=== PATIENT | female | born 1940 | race Two or more races ===

== ENCOUNTER 2016-11-26 13:45 | Outpatient (CLI) | payer MEDICARE, MEDICAID | END 2016-11-26 23:59 | disposition home health service (06) | LOC: WOU 13:45 | PROVIDERS: ATTEND Podiatrist Foot & Ankle Surgery | DX: I87.311 Chronic venous hypertension (idiopathic) with ulcer of right lower extremity (principal); L97.312 Non-pressure chronic ulcer of right ankle with fat layer exposed; L03.115 Cellulitis of right lower limb; I11.9 Hypertensive heart disease without heart failure; Z83.3 Family history of diabetes mellitus | CPT/HCPCS: 87070-TC; 87186-TC; 93925-TC; 93971-TC; A6402; G0463 ==

== ENCOUNTER 2016-12-03 13:40 | Outpatient (CLI) | payer MEDICARE, MEDICAID | END 2016-12-03 23:59 | disposition home or self-care (01) | LOC: WOU 13:40 | PROVIDERS: ATTEND Podiatrist Foot & Ankle Surgery | DX: I87.311 Chronic venous hypertension (idiopathic) with ulcer of right lower extremity (principal); L97.312 Non-pressure chronic ulcer of right ankle with fat layer exposed; B35.1 Tinea unguium; Z83.3 Family history of diabetes mellitus; I11.9 Hypertensive heart disease without heart failure; Z79.899 Other long term (current) drug therapy | CPT/HCPCS: 29582; A6207; A6253; A6402 ==

== ENCOUNTER 2016-12-17 14:30 | Outpatient (CLI) | payer MEDICARE, MEDICAID | END 2016-12-17 23:59 | disposition home health service (06) | LOC: WOU 14:30 | PROVIDERS: ATTEND Podiatrist Foot & Ankle Surgery | DX: I87.311 Chronic venous hypertension (idiopathic) with ulcer of right lower extremity (principal); L97.312 Non-pressure chronic ulcer of right ankle with fat layer exposed; L03.115 Cellulitis of right lower limb; R60.0 Localized edema; I11.9 Hypertensive heart disease without heart failure; Z83.3 Family history of diabetes mellitus | CPT/HCPCS: 11042; 11045; A6207; A6402 ==

== ENCOUNTER 2016-12-25 13:58 | Outpatient (CLI) | payer MEDICARE, MEDICAID | END 2016-12-25 23:59 | disposition home health service (06) | LOC: WOU 13:58 | PROVIDERS: ATTEND Podiatrist Foot & Ankle Surgery | DX: I83.013 Varicose veins of right lower extremity with ulcer of ankle (principal); L97.312 Non-pressure chronic ulcer of right ankle with fat layer exposed; I83.891 Varicose veins of right lower extremity with other complications; L03.115 Cellulitis of right lower limb; I10 Essential (primary) hypertension; Z79.899 Other long term (current) drug therapy | CPT/HCPCS: 11042; 11045; A6207; A6402 ×2 ==

== ENCOUNTER 2016-12-31 14:30 | Outpatient (CLI) | payer MEDICARE, MEDICAID | END 2016-12-31 23:59 | disposition home health service (06) | LOC: WOU 14:30 | PROVIDERS: ATTEND Podiatrist Foot & Ankle Surgery | DX: I83.013 Varicose veins of right lower extremity with ulcer of ankle (principal); L97.312 Non-pressure chronic ulcer of right ankle with fat layer exposed; B35.1 Tinea unguium; I11.9 Hypertensive heart disease without heart failure; L03.115 Cellulitis of right lower limb | CPT/HCPCS: 11042; 11045; A6207; A6402 ==

== ENCOUNTER 2017-01-08 14:42 | Outpatient (CLI) | payer MEDICARE, MEDICAID | END 2017-01-08 23:59 | disposition home health service (06) | LOC: WOU 14:42 | PROVIDERS: ATTEND Podiatrist Foot & Ankle Surgery | DX: I87.311 Chronic venous hypertension (idiopathic) with ulcer of right lower extremity (principal); L97.312 Non-pressure chronic ulcer of right ankle with fat layer exposed; L03.115 Cellulitis of right lower limb; I82.811 Embolism and thrombosis of superficial veins of right lower extremity; I11.9 Hypertensive heart disease without heart failure | CPT/HCPCS: 11042; 11045; A6207; A6402 ==

== ENCOUNTER 2017-01-22 13:49 | Outpatient (CLI) | payer MEDICARE, MEDICAID | END 2017-01-22 23:59 | disposition home health service (06) | LOC: WOU 13:49 | PROVIDERS: ATTEND Podiatrist Foot & Ankle Surgery | DX: I87.311 Chronic venous hypertension (idiopathic) with ulcer of right lower extremity (principal); L97.312 Non-pressure chronic ulcer of right ankle with fat layer exposed; R00.1 Bradycardia, unspecified; Z95.0 Presence of cardiac pacemaker; Z83.3 Family history of diabetes mellitus; Z79.899 Other long term (current) drug therapy | CPT/HCPCS: 29582; A6207; A6253; A6402 ==

== ENCOUNTER 2017-01-24 09:58 | Outpatient (CLI) | payer MEDICARE, MEDICAID ==
[2017-01-24 10:41] LABS: BASOPHILS % (AUTO) 0.8 % (0.0-2.0); DIFF TOTAL % 100 %; EOSINOPHILS # (AUTO) 0.2 /CMM (0.0-0.7); EOSINOPHILS % (AUTO) 4.5 % (0.0-6.0); HEMATOCRIT 35 % (33-45); HEMOGLOBIN 11.7 g/dL (11.5-14.8); LYMPHOCYTES # (AUTO) 1.5 /CMM (0.8-4.8); LYMPHOCYTES % (AUTO) 27.1 % (20.0-44.0); MEAN CORPUSCULAR HEMOGLOBIN 31 PG (26.0-33.0); MEAN CORPUSCULAR HGB CONC 33 g/dl (31.0-36.0); MEAN CORPUSCULAR VOLUME 94 fL (82-100); MONOCYTES # (AUTO) 0.3 /CMM (0.1-1.30); MONOCYTES % (AUTO) 6.2 % (2.0-12.0); NEUTROPHILS # (AUTO) 3.4 /CMM (1.8-8.9); NEUTROPHILS % (AUTO) 61.4 % (43.0-81.0); PLATELET COUNT (AUTO) 180 /CMM (150-450); RED BLOOD CELL COUNT(AUTO) 3.78 MIL/uL (4.0-5.2); WHITE BLOOD COUNT (AUTO) 5.5 K/uL (4.3-11.0)
[2017-01-24 10:53] LABS: CALCIUM, SERUM 8.8 mg/dL (8.5-10.1); CREATININE 0.8 mg/dL (0.6-1.3)
[2017-01-24 11:00] LABS: INR 1.02 (0.87-1.13)
== END 2017-01-24 23:59 | disposition home or self-care (01) ==
LOC: LAB 09:58
PROVIDERS: ATTEND Podiatrist Foot & Ankle Surgery
DX: I87.2 Venous insufficiency (chronic) (peripheral) (principal)
CPT/HCPCS: 36415; 71020-TC; 80048-TC; 85025-TC; 85730-TC

== ENCOUNTER 2017-01-29 14:20 | Outpatient (CLI) | payer MEDICARE, MEDICAID | END 2017-01-29 23:59 | disposition home health service (06) | LOC: WOU 14:20 | PROVIDERS: ATTEND Podiatrist Foot & Ankle Surgery | DX: I87.311 Chronic venous hypertension (idiopathic) with ulcer of right lower extremity (principal); L97.312 Non-pressure chronic ulcer of right ankle with fat layer exposed; I95.9 Hypotension, unspecified; I49.5 Sick sinus syndrome; Z83.3 Family history of diabetes mellitus; L03.115 Cellulitis of right lower limb | CPT/HCPCS: 11042; 11045; A6207; A6253; A6402 ==

== ENCOUNTER 2017-02-05 14:02 | Outpatient (CLI) | payer MEDICARE, MEDICAID | END 2017-02-05 23:59 | disposition home health service (06) | LOC: WOU 14:02 | PROVIDERS: ATTEND Podiatrist Foot & Ankle Surgery | DX: I87.311 Chronic venous hypertension (idiopathic) with ulcer of right lower extremity (principal); L97.312 Non-pressure chronic ulcer of right ankle with fat layer exposed; Z83.3 Family history of diabetes mellitus; I11.9 Hypertensive heart disease without heart failure; I82.811 Embolism and thrombosis of superficial veins of right lower extremity; I49.5 Sick sinus syndrome | CPT/HCPCS: 11042; 11045; A6207; A6253; A6402 ==

== ENCOUNTER 2017-02-07 05:13 | Inpatient (IN) | payer MEDICARE, OTHER ==
[~2017-02-07] VITALS: Ht 154.9 cm; Wt 58.5 kg
[2017-02-07 05:30] VITALS: BP 159/67
--- NOTE | 2017-02-07 05:40 | NUR ---
RN NOTES RECEIVED PT. DAY SURGERY, AWAKE A/OX4. MONTENEGRIN SPEAKING, DAUGHTER AT BEDSIDE, DRESSING ON THE RIGHT ANKLE DRY AND INTACT
[2017-02-07 06:30] LABS: CALCIUM, SERUM 8.8 mg/dL (8.5-10.1); CREATININE 0.7 mg/dL (0.6-1.3); POTASSIUM 3.5 mmol/L (3.5-5.1)
[2017-02-07 06:34] LABS: BASOPHILS % (AUTO) 0.7 % (0.0-2.0); EOSINOPHILS # (AUTO) 0.2 /CMM (0.0-0.7); EOSINOPHILS % (AUTO) 3.8 % (0.0-6.0); HEMATOCRIT 35 % (33-45); HEMOGLOBIN 11.7 g/dL (11.5-14.8); LYMPHOCYTES # (AUTO) 1.6 /CMM (0.8-4.8); LYMPHOCYTES % (AUTO) 35.8 % (20.0-44.0); MEAN CORPUSCULAR HEMOGLOBIN 31 PG (26.0-33.0); MEAN CORPUSCULAR HGB CONC 34 g/dl (31.0-36.0); MEAN CORPUSCULAR VOLUME 93 fL (82-100); MONOCYTES # (AUTO) 0.3 /CMM (0.1-1.30); MONOCYTES % (AUTO) 7.5 % (2.0-12.0); NEUTROPHILS # (AUTO) 2.3 /CMM (1.8-8.9); NEUTROPHILS % (AUTO) 52.2 % (43.0-81.0); PLATELET COUNT (AUTO) 193 /CMM (150-450); RDW COEFFICIENT OF VARIATION 14.8 (11.5-15.0); RED BLOOD CELL COUNT(AUTO) 3.72 MIL/uL (4.0-5.2); WHITE BLOOD COUNT (AUTO) 4.4 K/uL (4.3-11.0)
[2017-02-07 06:37] LABS: INR 1.03 (0.87-1.13)
[2017-02-07] MEDS ORDERED: BUPIVACAINE MPF 0.5% W/EPI INJ 30 ML VIAL ONE (06:50)
[2017-02-07] MEDS ORDERED: LIDOCAINE HCL/PF 1% 30 ML SDV ONE (06:50)
[2017-02-07] MEDS ORDERED: MINERAL OIL 10 ML VIAL MC ONE (07:01)
--- NOTE | 2017-02-07 07:10 | NUR ---
RN NOTES PT. SENT TO OR FOR WOUND PREP AND SPLIT THICKNESS SKIN GRAFT RIGHT ANKLE
[2017-02-07] MEDS ORDERED: MIDAZOLAM HCL 2 MG/2ML VIAL ONE (07:19)
[2017-02-07] MEDS ORDERED: FENTANYL PF 100MCG/2ML AMPUL ONE (07:19)
--- NOTE | 2017-02-07 07:30 | NUR ---
AM RN NOTE Patient in OR upon arrival.
--- NOTE | 2017-02-07 09:05 | NUR ---
AM RN NOTE Patient came back from OR as accompanied by OR staff, A/O X3 verbally responsive, Turkmen speaking. Denies any pain or discomfort at this time. Daughter (Dawna) at bedside. Wound vac attached to right thigh @125mm/hg with no output at this time. Right leg covered with dressing and elevated with [address] pill[address]. Seen by Dr. Murray recruiting manager with new order to place patient on tele monitor. Diet ordered. Bed in low locked position. Will continue to monitor. V/S BP151/78 T97.0 P63 R18 PA0/10 O2 sat 96% at RA.
[2017-02-07] MEDS ORDERED: Z GUARD REMEDY 2 OZ OINT TP PRN (09:30)
--- NOTE | 2017-02-07 09:36 | NUR ---
WOUND CARE CONSULT: PATIENT SEEN AND SKIN ASSESSMENT DONE. PATIENT ALERT, ORIENTED, ABLE TO TURN AND REPOSITION HOWEVER NEEDS ASSIST DUE TO RIGHT LOWER LEG IN NON REMOVABLE SURGICAL DRESSINGS AND WRAP, CONTINENT, VANDANA 20. SEE TODAY'S SKIN ASSESSMENT IN [facility]CS ALONG WITH RECOMMENDATIONS DISCUSSED WITH NURSING STAFF INCLUDING MOISTURE PROTECTION AND PRESSURE PREVENTION MEASURES. MD IN AGREEMENT WITH PLAN OF CARE.
[2017-02-07 09:52] LABS: THYROID STIMULATING HORMONE 1.412 uIU/mL (0.358-3.74)
[2017-02-07 09:53] LABS: MAGNESIUM 2.1 mg/dL (1.8-2.4); PHOSPHORUS 3.4 mg/dL (2.5-4.9)
[2017-02-07] MEDS ORDERED: HYDROCODONE/APAP 5/325MG 1 EACH TABLET PO PRN ×2 (10:30)
[2017-02-07] MEDS ORDERED: MORPHINE SULFATE INJ 2 MG/ML DISP.SYRIN IV PRN (10:30)
[2017-02-07] MEDS: CHOLECALCIFEROL 1,000 UNIT TABLET (VIT D3) PO SCH ×2 (10:40→10:42)
[2017-02-07] MEDS: VALSARTAN 80 MG TABLET PO SCH (10:40)
[2017-02-07] MEDS: ASCORBIC ACID 500 MG TABLET PO SCH (10:40)
[2017-02-07] MEDS: AMLODIPINE BESYLATE 5 MG TABLET PO SCH ×2 (10:41→10:42)
--- NOTE | 2017-02-07 10:42 | NUR ---
RN NOTE Routine vit D3 and Norvasc given as ordered.
[2017-02-07] MEDS: CALCIUM CARBONATE 500 MG TAB.CHEW PO SCH (10:43)
[2017-02-07 16:00] VITALS: BP 153/75
[2017-02-07] MEDS ORDERED: IV SET PRIMARY PUMP SET 1 EA INFUS.SET MC ONE ×2 (16:25→20:47)
[2017-02-07] MEDS: ANCEF 1 GM/50 ML D5W IV SCH ×4 (16:28→23:11)
[2017-02-07] MEDS ORDERED: BIMA2.5D5 EACHEYE (18:20)
[2017-02-07] MEDS ORDERED: BRIN8DRO EACHEYE (18:21)
--- NOTE | 2017-02-07 19:10 | NUR ---
RN OPEN NOTES RECEIVED PATIENT AWAKE IN BED WITH FAMILY AT BEDSIDE. A/O X4. NO SIGNS OF DISTRESS OR DISCOMFORT. BREATHING EVEN AND UNLABORED. ON TELE MONITOR WITH SINUS FABIENNE HR 60 NOTED. IV ACCESS IN L HAND. PATENT AND INTACT NO SIGNS OF REDNESS OR INFILTRATION. WOUND VAC AT RIGHT UPPER THIGH WITH NO DRAINAGE NOTED. RIGHT LOWER LEG DRESSING C/D/I. DENIES ANY PAIN AT THIS TIME. BED IN LOW LOCKED POSITION WITH SIDE RAILS X2. CALL LIGHT WITHIN REACH. WILL CONTINUE TO MONITOR.
--- NOTE | 2017-02-07 19:25 | NUR ---
RN NOTE Patient lying in her bed, denies any pain at this time. Skin pictures taken. Endorsed to next shift for AURORA.
[2017-02-07 20:00] VITALS: BP 134/83
[2017-02-07] MEDS: SIMBRINZA EYE OP SCH (20:34)
[2017-02-07] MEDS: IV NS 0.9% 1,000 ML IV PRN (20:56)
[2017-02-07] MEDS ORDERED: BIMATOPROST 2.5 ML DROPS OP SCH (22:00)
[2017-02-07] MEDS: LATANOPROST EYE DROP 0.005% 2.5 ML BOTTLE EACHEYE SCH (23:04)
[2017-02-07] MEDS ORDERED: SECONDARY IV SET 1 EA INFUS.SET MC ONE (23:08)
[2017-02-08] VITALS (8 sets, daily range): BP systolic 123–195; BP diastolic 52–82
--- NOTE | 2017-02-08 07:15 | NUR ---
RN CLOSING NOTES PATIENT AWAKE IN BED. A/O X4. NO SIGNS OF DISTRESS OR DISCOMFORT. BREATHING EVEN AND UNLABORED. ON TELE MONITOR WITH SINUS FABIENNE HR 46 NOTED. IV ACCESS IN L HAND. PATENT AND INTACT NO SIGNS OF REDNESS OR INFILTRATION. WOUND VAC AT RIGHT UPPER THIGH WITH NO DRAINAGE NOTED. RIGHT LOWER LEG DRESSING C/D/I. DENIES ANY PAIN AT THIS TIME. NO SIGNIFICANT CHANGES THROUGH THE NIGHT. PATIENT KEPT CLEAN DRY AND COMFORTABLE. BED IN LOW LOCKED POSITION WITH SIDE RAILS X2. CALL LIGHT WITHIN REACH. ENDORSED TO AM SHIFT FOR AURORA.
--- NOTE | 2017-02-08 07:20 | NUR ---
RN NOTES RECEIVED PATIENT AWAKE IN BED, A/O X4. RESPIRATIONS EVEN AND UNLABORED, DENIES ANY PAIN OR DISCOMFORT AT THIS TIME.NO SIGNS OF DISTRESS OR DISCOMFORT. ON TELE MONITOR WITH SINUS FABIENNE HR 60 NOTED. IV ACCESS IN L HAND. PATENT AND INTACT NO SIGNS OF REDNESS OR INFILTRATION. WOUND VAC AT RIGHT UPPER THIGH WITH NO DRAINAGE NOTED. RIGHT LOWER LEG DRESSING C/D/I. BED IN LOW LOCKED POSITION WITH SIDE RAILS X2. CALL LIGHT WITHIN REACH. WILL CONTINUE TO MONITOR.
[2017-02-08 07:29] LABS: BASOPHILS % (AUTO) 0.9 % (0.0-2.0); EOSINOPHILS # (AUTO) 0.2 /CMM (0.0-0.7); EOSINOPHILS % (AUTO) 5.4 % (0.0-6.0); HEMATOCRIT 34 % (33-45); HEMOGLOBIN 11.2 g/dL (11.5-14.8); LYMPHOCYTES # (AUTO) 1.8 /CMM (0.8-4.8); LYMPHOCYTES % (AUTO) 39.7 % (20.0-44.0); MEAN CORPUSCULAR HEMOGLOBIN 31 PG (26.0-33.0); MEAN CORPUSCULAR HGB CONC 33 g/dl (31.0-36.0); MEAN CORPUSCULAR VOLUME 93 fL (82-100); MONOCYTES # (AUTO) 0.3 /CMM (0.1-1.30); MONOCYTES % (AUTO) 6.6 % (2.0-12.0); NEUTROPHILS # (AUTO) 2.1 /CMM (1.8-8.9); NEUTROPHILS % (AUTO) 47.4 % (43.0-81.0); PLATELET COUNT (AUTO) 180 /CMM (150-450); RDW COEFFICIENT OF VARIATION 14.4 (11.5-15.0); WHITE BLOOD COUNT (AUTO) 4.4 K/uL (4.3-11.0)
[2017-02-08 07:45] LABS: ALBUMIN 3.2 g/dL (3.4-5.0); BILIRUBIN,TOTAL 0.5 mg/dL (0.2-1.0); CALCIUM, SERUM 8.5 mg/dL (8.5-10.1); CREATININE 0.7 mg/dL (0.6-1.3); MAGNESIUM 2.1 mg/dL (1.8-2.4); PHOSPHORUS 3.3 mg/dL (2.5-4.9); POTASSIUM 3.9 mmol/L (3.5-5.1); TOTAL PROTEIN, SERUM 6.9 g/dL (6.4-8.2)
[2017-02-08] MEDS: ASPIRIN EC 81 MG TABLET.DR PO SCH (08:41)
[2017-02-08] MEDS: AMLODIPINE BESYLATE 5 MG TABLET PO SCH (08:41)
[2017-02-08] MEDS: VALSARTAN 80 MG TABLET PO SCH (08:42)
[2017-02-08] MEDS: ASCORBIC ACID 500 MG TABLET PO SCH (09:10)
[2017-02-08] MEDS: CALCIUM CARBONATE 500 MG TAB.CHEW PO SCH (09:10)
[2017-02-08] MEDS: CHOLECALCIFEROL 1,000 UNIT TABLET (VIT D3) PO SCH (09:10)
[2017-02-08] MEDS: SIMBRINZA EYE OP SCH ×3 (09:11→16:21)
--- NOTE | 2017-02-08 09:30 | NUR ---
RN NOTES PT WITH TRENDING HIGH BP, BOONE EPOXY SPECIALIST MADE AWARE, WILL REVIEW, WILL CONTINUE TO MONITOR
[2017-02-08] MEDS: IV NS 0.9% 1,000 ML IV PRN (14:58)
[2017-02-08] MEDS ORDERED: diphenhydrAMINE HCL 25 MG CAPSULE PO PRN (18:30)
--- NOTE | 2017-02-08 19:15 | NUR ---
RN OPEN NOTES RECEIVED PATIENT AWAKE IN BED. A/O X4. NO SIGNS OF DISTRESS OR DISCOMFORT. BREATHING EVEN AND UNLABORED. ON TELE MONITOR WITH SINUS FABIENNE NOTED. IV ACCESS IN L HAND WITH NS INFUSING. PATENT AND INTACT NO SIGNS OF REDNESS OR INFILTRATION. WOUND VAC AT RIGHT UPPER THIGH WITH NO DRAINAGE NOTED. RIGHT LOWER LEG DRESSING C/D/I. DENIES ANY PAIN AT THIS TIME. BED IN LOW LOCKED POSITION WITH SIDE RAILS X2. CALL LIGHT WITHIN REACH. WILL CONTINUE TO MONITOR.
[2017-02-08] MEDS ORDERED: FEE PK DOSING 1 MIN EA MC ONE (19:17)
--- NOTE | 2017-02-08 19:33 | NUR ---
RN NOTES RECEIVED PATIENT AWAKE IN BED, A/O X4. RESPIRATIONS EVEN AND UNLABORED, DENIES ANY PAIN OR DISCOMFORT AT THIS TIME.NO SIGNS OF DISTRESS OR DISCOMFORT. ON TELE MONITOR WITH SINUS FABIENNE nOTED. IV ACCESS IN L HAND. PATENT AND INTACT NO SIGNS OF REDNESS OR INFILTRATION. WOUND VAC AT RIGHT UPPER THIGH WITH NO DRAINAGE NOTED. RIGHT LOWER LEG DRESSING C/D/I. BED IN LOW LOCKED POSITION WITH SIDE RAILS X2. CALL LIGHT WITHIN REACH. ENDORSED TO NEXT SHIFT FOR CONTINUITY OF CARE
[2017-02-08] MEDS: VANCOMYCIN 1 GM in IV D5W 250 ML IV SCH (20:11)
[2017-02-08] MEDS ORDERED: SECONDARY IV SET 1 EA INFUS.SET MC ONE (20:15)
[2017-02-08] MEDS ORDERED: CEFAZOLIN 1 GM in IV NS 0.9% 50 ML IV SCH (21:00)
[2017-02-08] MEDS: LATANOPROST EYE DROP 0.005% 2.5 ML BOTTLE EACHEYE SCH (21:56)
[2017-02-09] VITALS (7 sets, daily range): BP systolic 134–178; BP diastolic 55–80
[2017-02-09] MEDS: IBUPROFEN 400 MG TABLET PO PRN (05:41)
--- NOTE | 2017-02-09 05:45 | NUR ---
RN NOTES PATIENT REPEAT BP 178/68. DR. BRONSON MADE AWARE. NO NEW ORDERS. PATIENT COMPLAIN OF SLIGHT HEADACHE. ADMINISTERED MOTRIN 800MG PRN. WILL CONTINUE TO MONITOR.
--- NOTE | 2017-02-09 07:18 | NUR ---
RN CLOSING NOTES PATIENT AWAKE IN BED. A/O X4. NO SIGNS OF DISTRESS OR DISCOMFORT. BREATHING EVEN AND UNLABORED. ON TELE MONITOR WITH SINUS FABIENNE HR 48 NOTED. IV ACCESS IN L HAND WITH NS INFUSING. PATENT AND INTACT NO SIGNS OF REDNESS OR INFILTRATION. WOUND VAC AT RIGHT UPPER THIGH WITH NO DRAINAGE NOTED. RIGHT LOWER LEG DRESSING C/D/I. DENIES ANY PAIN AT THIS TIME. NO SIGNIFICANT CHANGES THROUGH THE NIGHT. PATIENT KEPT CLEAN DRY AND COMFORTABLE. BED IN LOW LOCKED POSITION WITH SIDE RAILS X2. CALL LIGHT WITHIN REACH. WILL ENDORSE TO AM SHIFT FOR AURORA.
--- NOTE | 2017-02-09 07:30 | NUR ---
WELDING MACHINE ASSEMBLER AM NOTES PATIENT AWAKE IN BED. A/O X4. TONGAN SPEAKING. S/P WOUND PREP AND SPLIT THICKNESS SKIN GRAFT 02/07/[address] COLÓN DONOR SITE RIGHT THIGH WITH WOUND VAC ON, CDI DRESSING, RT LOWER LEG DRESSING CDI. ON RA, NO SOB, BREATHING EVEN AND UNLABORED. ON TELEMETRY SB HR 56, DENIES CHEST PAIN OR DISCOMFORT, LEFT HAND IV G22 WITH NS AT 75ML/HR. SITE CLEAR. USES BEDPAN, ON REGULAR DIET. BED IN LOW LOCKED POSITION WITH SIDE RAILS X2. CALL LIGHT WITHIN REACH. WILL CONTINUE TO MONITOR.
[2017-02-09 08:50] LABS: ALBUMIN 3.3 g/dL (3.4-5.0); BILIRUBIN,TOTAL 0.5 mg/dL (0.2-1.0); CREATININE 0.7 mg/dL (0.6-1.3); PHOSPHORUS 3.4 mg/dL (2.5-4.9); POTASSIUM 3.8 mmol/L (3.5-5.1); TOTAL PROTEIN, SERUM 7.2 g/dL (6.4-8.2)
[2017-02-09] MEDS: SIMBRINZA EYE OP SCH ×3 (09:06→16:55)
[2017-02-09] MEDS: CALCIUM CARBONATE 500 MG TAB.CHEW PO SCH (09:06)
[2017-02-09] MEDS: VALSARTAN 80 MG TABLET PO SCH (09:06)
[2017-02-09] MEDS: CHOLECALCIFEROL 1,000 UNIT TABLET (VIT D3) PO SCH (09:07)
[2017-02-09] MEDS: ASCORBIC ACID 500 MG TABLET PO SCH (09:07)
[2017-02-09] MEDS: ASPIRIN EC 81 MG TABLET.DR PO SCH (09:07)
[2017-02-09] MEDS: AMLODIPINE BESYLATE 5 MG TABLET PO SCH (09:07)
--- NOTE | 2017-02-09 09:30 | NUR ---
RN NOTES ADMINISTERED DUE MEDS.
[2017-02-09] MEDS: VANCOMYCIN 1 GM in IV D5W 250 ML IV SCH (13:14)
[2017-02-09] MEDS: IV NS 0.9% 1,000 ML IV PRN (13:14)
--- NOTE | 2017-02-09 15:52 | NUR ---
MS RN NOTES SPOKE WITH DR. COLÓN ABOUT WOUND VAC SHOWING BLOCKAGE AND NOT WORKING, MACHINE WAS CHANGE BUT STILL SHOW THE BLOCKAGE, PER DR. COLÓN - CHANGE THE DRESSING AND APPLY WOUND VAC ON. JUN CHARGE NURSE AWARE.
--- NOTE | 2017-02-09 16:37 | NUR ---
RN NOTES FOAM DRESSING ON RIGHT THIGH CHANGED WITH JUN. WOUND VAC NOW FUNCTIONING WELL AT 125 MMHG CONTINUOUS SUCTIONING. PT TOLERATED WELL.
--- NOTE | 2017-02-09 18:22 | NUR ---
MS RN CLOSING NOTES PATIENT RESTING IN BED, A/O X4. GUAMANIAN SPEAKING. S/P WOUND PREP AND SPLIT THICKNESS SKIN GRAFT 02/07/[address] COLÓN DONOR SITE RIGHT THIGH WITH WOUND VAC ON, CDI DRESSING, RT LOWER LEG DRESSING CDI. ON RA, NO SOB, BREATHING EVEN AND UNLABORED. DENIES CHEST PAIN OR DISCOMFORT, LEFT HAND IV G22 WITH NS AT 75ML/HR. SITE CLEAR. USES BEDPAN, ON REGULAR DIET. BED IN LOW LOCKED POSITION WITH SIDE RAILS X2. CALL LIGHT WITHIN REACH. ALL NEEDS MET. ISOLATION PRECAUTION OBSERVED. NO OTHER SIGNIFICANT CHANGE IN CONDITION. WILL ENDORSE TO NEXT SHIFT FOR AURORA.
--- NOTE | 2017-02-09 19:10 | NUR ---
MS/RN NOTES RECEIVED PT. LYING IN BED. AWAKE, ALERT AND ORIENTED X3. BREATHING EVEN AND UNLABORED ON ROOM AIR. NO SOB, RESPIRATORY DISTRESS OR COMPLAINTS OF PAIN NOTED AT THIS TIME. PT. WITH LEFT HAND 22 GAUGE PERIPHERAL IV PRESENT, PATENT AND INTACT ADMINISTERING TO PT. NS @ 75 ML/HR. PT IS S/P RIGHT ANKLE WOUND PREP AND SPLIT THICKNESS GRAFT 02/07/[address] COLÓN. PT. WITH RIGHT THIGH WOUND VAC PRESENT AND INTACT TO 125 MMHG CONTINUOUS SUCTION NO DRAINAGE NOTED AT THIS TIME. PT. WITH RIGHT LOWER LEG DRESSING PRESENT, CLEAN, DRY AND INTACT. RIGHT LOWER LEG ELEVATED ON PILLOWS. BED IN LOWEST POSITION, CALL LIGHT WITHIN REACH, WILL CONTINUE TO MONITOR.
[2017-02-09] MEDS: LATANOPROST EYE DROP 0.005% 2.5 ML BOTTLE EACHEYE SCH (23:06)
--- NOTE | 2017-02-10 06:55 | NUR ---
MS/RN NOTES PT. LYING IN BED RESTING. BREATHING EVEN AND UNLABORED ON ROOM AIR. NO SOB, RESPIRATORY DISTRESS OR COMPLAINTS OF PAIN NOTED THROUGHOUT SHIFT. PT. WITH RIGHT FOREARM 22 GAUGE PERIPHERAL IV PRESENT, PATENT AND INTACT ADMINISTERING TO PT. NS @ 75 ML/HR. PT. WITH RIGHT THIGH WOUND VAC PRESENT AND INTACT TO 125 MMHG CONTINUOUS SUCTION NO DRAINAGE NOTED THROUGHOUT SHIFT. PT. WITH RIGHT LOWER LEG DRESSING PRESENT, CLEAN, DRY AND INTACT. RIGHT LOWER LEG ELEVATED ON PILLOWS AT ALL TIMES. ALL PT. NEEDS MET. BED IN LOWEST POSITION, CALL LIGHT WITHIN REACH, WILL ENDORSE TO DAYSHIFT NURSE FOR CONTINUITY OF CARE.
[2017-02-10 07:31] LABS: CALCIUM, SERUM 8.4 mg/dL (8.5-10.1); CREATININE 0.6 mg/dL (0.6-1.3); POTASSIUM 3.7 mmol/L (3.5-5.1)
[2017-02-10 08:00] VITALS: BP 165/73
--- NOTE | 2017-02-10 08:00 | NUR ---
VANCOMYCIN ADMINISTERED. PATIENT TOLERATING WELL. WILL CONTINUE TO MONITOR
--- NOTE | 2017-02-10 08:09 | NUR ---
RN AM NOTES RECEIVED PATIENT AWAKE IN BED, REQUESTING TO USE RESTROOM. WATER MECHANIC ASSISTED PATIENT IN USING BEDPAN. WAITING FOR BREAKFAST, ALL NEEDS MET. WILL CONTINUE TO MONITOR
--- NOTE | 2017-02-10 09:00 | NUR ---
EYEDROPS ADMINISTERED. PATIENT TOLERATED WELL. WILL CONTINUE TO MONITOR
[2017-02-10] MEDS: AMLODIPINE BESYLATE 5 MG TABLET PO SCH (10:24)
[2017-02-10] MEDS: CHOLECALCIFEROL 1,000 UNIT TABLET (VIT D3) PO SCH (10:25)
[2017-02-10] MEDS: CALCIUM CARBONATE 500 MG TAB.CHEW PO SCH (10:25)
[2017-02-10] MEDS: ASPIRIN EC 81 MG TABLET.DR PO SCH (10:25)
[2017-02-10] MEDS: VALSARTAN 80 MG TABLET PO SCH (10:26)
[2017-02-10] MEDS: ASCORBIC ACID 500 MG TABLET PO SCH (10:27)
[2017-02-10] MEDS ORDERED: SECONDARY IV SET 1 EA INFUS.SET MC ONE (10:35)
[2017-02-10] MEDS: SIMBRINZA EYE OP SCH ×3 (10:45→16:56)
[2017-02-10] MEDS: VANCOMYCIN 1 GM in IV D5W 250 ML IV SCH (10:46)
[2017-02-10 16:00] VITALS: BP 113/46
[2017-02-10] MEDS: IV NS 0.9% 1,000 ML IV PRN (16:56)
--- NOTE | 2017-02-10 18:15 | NUR ---
RN PN NOTES PATIENT IN BED, AWAKE, WITH NO COMPLAINTS OF PAIN, WOUNDVAC IN PLACE, WITH NO DRANIAGE OR EXUDATE. NO PAIN OR TENDERNESS AT WOUNDSITE, NO REDNESS OR SKIN TEARS ON SURROUNDING SKIN. IN STABLE CONDITION. WILL ENDORSE TO NEXT SHIFT
--- NOTE | 2017-02-10 19:30 | NUR ---
MS/RN OPENING NOTES PT AWAKE, RESTING COMFORTABLY IN BED. A/OX3, PUERTO RICAN SPEAKING. ON ROOM AIR, NO SOB OR DISTRESS NOTED. DENIES PAIN AT THIS TIME. IV TO RFA PATENT AND INTACT. WOUND VAC TO RIGHT THIGH RUNNING AT 125 MM/HG, NO DRAINAGE NOTED. VANCO TROUGH SCHEDULED FOR DRAW AT 0100 THIS MORNING BEFORE 4TH SCHEDULED VANCO DOSE AT 0200. BED IN LOW/LOCKED POSITION WITH CALL LIGHT IN REACH. BED RAILS UPX2. PT AWARE ABOUT NWB TO RIGHT FOOT. WILL CONTINUE TO MONITOR
[2017-02-10 20:40] VITALS: BP 117/52
[2017-02-10] MEDS: LATANOPROST EYE DROP 0.005% 2.5 ML BOTTLE EACHEYE SCH (22:32)
[2017-02-11] MEDS ORDERED: SECONDARY IV SET 1 EA INFUS.SET MC ONE (02:01)
[2017-02-11] MEDS: VANCOMYCIN 1 GM in IV D5W 250 ML IV SCH (02:04)
[2017-02-11 07:04] LABS: CALCIUM, SERUM 8.3 mg/dL (8.5-10.1); CREATININE 0.6 mg/dL (0.6-1.3); POTASSIUM 3.5 mmol/L (3.5-5.1)
--- NOTE | 2017-02-11 07:15 | NUR ---
MS/RN CLOSING NOTES PT AWAKE, BRUSHING HER TEETH. A/OX3. ON ROOM AIR, NO SOB OR DISTRESS NOTED. DENIES PAIN AT THIS TIME. IV TO RFA PATENT AND INTACT. WOUND VAC TO RIGHT THIGH RUNNING AT 125MMHG WITH 30CC OF SEROUS DRAINAGE NOTED. RIGHT EXTREMITY ELEVATED ON 2 PILLOWS THROUGHOUT NIGHT. MADE PT COMFORTABLE THROUGHOUT SHIFT. ALL DUE MEDS ADMINISTERED. ALL NEEDS MET AND ATTENDED TO. BED IN LOW/LOCKED POSITION, CALL LIGHT IN REACH. ENDORSED TO AM SHIFT AURORA.
--- NOTE | 2017-02-11 07:24 | NUR ---
ANISH MCCLOUD NOTES RECEIVED PATIENT IN STABLE CONDITION, WITH SEROUS DRAINAGE ABOUT 30CC FROM WOUNDVAC SITE. PATIENT WITH NO COMPLAINTS OF PAIN OR DISCOMFORT. WILL CONTINUE TO MONITOR.
[2017-02-11 07:59] VITALS: BP 151/61
[2017-02-11] MEDS: SIMBRINZA EYE OP SCH ×3 (08:10→17:52)
[2017-02-11] MEDS: CALCIUM CARBONATE 500 MG TAB.CHEW PO SCH (08:19)
[2017-02-11] MEDS: CHOLECALCIFEROL 1,000 UNIT TABLET (VIT D3) PO SCH (08:19)
[2017-02-11] MEDS: ASPIRIN EC 81 MG TABLET.DR PO SCH (08:19)
[2017-02-11] MEDS: VALSARTAN 80 MG TABLET PO SCH (08:20)
[2017-02-11] MEDS: AMLODIPINE BESYLATE 5 MG TABLET PO SCH (08:20)
[2017-02-11] MEDS: ASCORBIC ACID 500 MG TABLET PO SCH (08:20)
[2017-02-11] MEDS: IV NS 0.9% 1,000 ML IV PRN (09:51)
--- NOTE | 2017-02-11 11:36 | NUR ---
CARBIDE POWDER PROCESSOR WOUND CARE ORDERS CLARIFIED WITH SURGEON DR COLÓN UPON DISCHARGE FROM HOSPITAL. ALL DISCUSSED WITH NURSING STAFF. PATIENT WILL NOT REQUIRE WOUND VAC TO CONTINUE UPON DISCHARGE. SEE WOUND TREATMENT ORDERS FOR TODAY.
[2017-02-11 16:00] VITALS: BP 115/44
--- NOTE | 2017-02-11 19:04 | NUR ---
RN PM NOTES PATIENT WITH PLAN TO DISCHARGE TO SNF, HOPEFULLY TOMORROW, NO MORE IV MEDS, PO STARTING. HL D/C'D, AWARE. PATIENT RESTING IN BED IN STABLE CONDITION, NO SOB, DISTRESS OR PAIN NOTED. WILL ENDORSE TO NEXT SHIFT.
--- NOTE | 2017-02-11 19:40 | NUR ---
RN OPENING NOTES RECEIVED REPORT FROM DAYSHIFT RN, CHRIS. Pt IS A/OX3, LITHUANIAN SPEAKING, VERBAL, ABLE TO MAKE NEEDS KNOWN. FOUND Pt AWAKE IN BED. NO S/S OF ACUTE DISTRESS OR SOB NOTED. DENIES PAIN AT THIS TIME. NO IV ACCESS, IVF HAVE BEEN MD Clarisa AWARE FROM [facility]. Pt IS BEING DISCHARGED TOMORROW IN THE AM TO [facility]. SAFETY MEASURES IN PLACE. BED LOW, LOCKED, HOB ELEVATED, SIDE RAILS UP, CALL LIGHT AND BEDSIDE TABLE WITHIN REACH. WILL CONTINUE TO MONITOR Pt THROUGHOUT THE SHIFT.
[2017-02-11 20:13] VITALS: BP 115/56
[2017-02-11] MEDS: AMOXICILLIN TRIHYDRATE 250 MG CAPSULE PO SCH (21:33)
[2017-02-11] MEDS: SULFAMETH/TRIMETH 800/160 MG 1 UDTAB TABLET PO SCH (21:34)
[2017-02-11] MEDS: LATANOPROST EYE DROP 0.005% 2.5 ML BOTTLE EACHEYE SCH (21:34)
[2017-02-11 22:00] VITALS: BP 115/56
--- NOTE | 2017-02-12 06:50 | NUR ---
RN CLOSING NOTES NO SIGNIFICANT CHANGES DURING THE SHIFT. ALL NEEDS MET AND ATTENDED TO. SAFETY MEASURES CARRIED OUT. NO S/S OF ACUTE DISTRESS OR SOB NOTED. WILL ENDORSE TO DAYSHIFT RN FOR Pt's AURORA & SAFETY.
--- NOTE | 2017-02-12 07:15 | NUR ---
MS RN INITIAL NOTES RECEIVED PATIENT IN BED, AWAKE, A/O X3. DIVEHI SPEAKING, UNDERSTAND LITTLE BOLIVIAN. BREATHING EVEN AND NON LABORED, NO SOB NOTED. WOUND RIGHT THIGH WITH WOUND VAC . SETTINGS AT 125mm/Hg CONTINUOUS SUCTION. RIGHT LEG DRESSING INTACT. APPEARS COMFORTABLY RESTING IN BED, NO C/O PAIN AT THIS TIME. CALL LIGHT WITHIN REACH. ON CONTACT ISOLATION MRSA WOUND. WILL CONT TO MONITOR.
--- NOTE | 2017-02-12 07:30 | NUR ---
PATIENT HAS NO IV SITE, PER NIGHT RN IS AWARE.
[2017-02-12 07:55] LABS: CALCIUM, SERUM 8.7 mg/dL (8.5-10.1); CREATININE 0.7 mg/dL (0.6-1.3); POTASSIUM 3.7 mmol/L (3.5-5.1)
[2017-02-12 08:00] VITALS: BP_SYST 136; BP_SYST 156; BP_DIAS 60; BP_DIAS 89
[2017-02-12] MEDS: ASPIRIN EC 81 MG TABLET.DR PO SCH (08:39)
[2017-02-12] MEDS: SULFAMETH/TRIMETH 800/160 MG 1 UDTAB TABLET PO SCH (08:39)
[2017-02-12] MEDS: ACIDOPHILUS/BULGARICUS 1 EACH TAB.CHEW PO SCH ×3 (08:39→16:44)
[2017-02-12] MEDS: CHOLECALCIFEROL 1,000 UNIT TABLET (VIT D3) PO SCH (08:39)
[2017-02-12] MEDS: AMOXICILLIN TRIHYDRATE 250 MG CAPSULE PO SCH (08:39)
[2017-02-12] MEDS: CALCIUM CARBONATE 500 MG TAB.CHEW PO SCH (08:39)
[2017-02-12] MEDS: AMLODIPINE BESYLATE 5 MG TABLET PO SCH (08:39)
[2017-02-12] MEDS: VALSARTAN 80 MG TABLET PO SCH (08:40)
[2017-02-12] MEDS: SIMBRINZA EYE OP SCH ×3 (08:40→16:44)
[2017-02-12] MEDS: ASCORBIC ACID 500 MG TABLET PO SCH (08:40)
--- NOTE | 2017-02-12 11:18 | NUR ---
PER DR. SANCHEZ, POSSIBLE DC TODAY. CM FOR PLACEMENT. PATIENT IS AWARE.
[2017-02-12] MEDS ORDERED: AMLO5TAB2 PO (14:57)
[2017-02-12] MEDS ORDERED: CALC500T63 PO (14:57)
[2017-02-12] MEDS ORDERED: ACID1TAB12 PO (14:57)
[2017-02-12] MEDS ORDERED: Valsartan PO (14:57)
[2017-02-12] MEDS ORDERED: Amoxicillin Trihydrate PO (14:57)
[2017-02-12] MEDS ORDERED: SULF1TAB3 PO (14:57)
[2017-02-12] MEDS ORDERED: ASCO500T9 PO (14:57)
[2017-02-12] MEDS ORDERED: CHOL100044 PO (14:57)
[2017-02-12] MEDS ORDERED: Aspirin PO (14:57)
--- NOTE | 2017-02-12 15:02 | NUR ---
PATIENT TO BE DISCHARGED TO SNF ORDERED. PATIENT IS AWARE.
[2017-02-12 16:00] VITALS: BP_SYST 98; BP_SYST 99; BP_DIAS 41; BP_DIAS 52
[2017-02-12] MEDS: IBUPROFEN 400 MG TABLET PO PRN (17:24)
--- NOTE | 2017-02-12 19:32 | NUR ---
MS RN CLOSING NOTES PATIENT IN BED, AWAKE. NOT IN DISTRESS. PATIENT TO BE DISCHARGED TODAY, AWAITING FOR TRANSPORTATION. WOUND VAC DISCONNECTED FROM RIGHT LAT THIGH WOUND ORDERED PRIOR DC. DRESSING CHANGED IN RIGHT LATERAL THIGH, PATIENT TOLERATED WELL. NO FLUID DRAINAGE FROM WOUND VAC. LEFT ANKLE DRESSING INTACT, NO BLEEDING NOTED. DISCHARGE INSTRUCTION GIVEN TO THE PATIENT, VERBALIZED UNDERSTANDING WITH KINYARWANDA AID SHANKER OUT. BELONGINGS CHECKED AND GIVEN TO THE PATIENT FOR DISCHARGE. [facility] SPOKE TO CECI FOR REPORT. ENDORSED TO FRONT DESK WORKER RN FOR CONTINUITY OF CARE.
--- NOTE | 2017-02-12 19:38 | NUR ---
MS RN OPENING NOTES RECEIVED PATIENT IN BED IN STABLE CONDITION, NO S/S OF DISTRESS, FOR DISCHARGE TODAY. NO S/S OF DISTRESS NO SOB, NO CHEST PAIN. NO COMPLAINS OF PAIN, SAFE FREE ENVIRONMENT PROVIDED FREE OF CLUTTERS, WILL CONTINUE TO MONITOR, ON LOW BED TO ENSURE SAFETY, CALL LIGHT WITHIN REACH.
--- NOTE | 2017-02-12 20:03 | NUR ---
PATIENT DISCHARGE PATIENT LEFT AT 2002 WITH 2 EMT VIA [place] TO [facility], PATIENT ON STABLE CONDITION NO S/S OF DISTRESS NOTED, NO CHEST PAIN, NO HEADACHE, NO NAUSEA AND VOMITING, NO COMPLAINS OF PAIN, TOLERATING ROOM AIR, HEALTH EDUCATION AND EXIT CARE WAS PROVIDED, EDUCATION ABOUT DISEASE AND RISKS AND BENEFITS FOLLOW UP CARE PROVIDED, VERBALIZED UNDERSTANDING. DOCUMENTS WAS PROVIDED. CONTINUE MEDICATION PRESCRIPTION WAS PROVIDED. VERBALIZED UNDERSTANDING. NO IV INTACT. MD AWARE OF PATIENT BEING DISCHARGE, ALL BELONGINGS WAS TAKEN,
== END 2017-02-12 20:30 | DRG 574 ==
LOC: DS 05:13 → WOUND3 05:15 → TELE 02-08 20:56 → MED 02-09 10:44 → WOUND3 02-12 09:56
PROVIDERS: ADMIT Internal Medicine Interventional Cardiology; ATTEND Nurse Practitioner Acute Care
PROC: 0HBHXZZ Excision of Right Upper Leg Skin, External Approach (ICD-10-PCS; 2017-02-07)
PROC: 0HRMX74 Replacement of Right Foot Skin with Autologous Tissue Substitute, Partial Thickness, External Approach (ICD-10-PCS; principal; 2017-02-07 07:30)
DX: L97.319 Non-pressure chronic ulcer of right ankle with unspecified severity (principal); E44.0 Moderate protein-calorie malnutrition; I83.018 Varicose veins of right lower extremity with ulcer other part of lower leg; I10 Essential (primary) hypertension; I87.8 Other specified disorders of veins; I49.5 Sick sinus syndrome; H40.9 Unspecified glaucoma
CPT/HCPCS: 36415; 80048-TC; 80053-TC; 80061-TC; 80202-TC; 82306; 82728-TC; 82962-TC; 83540-TC; 83735-TC; 84100-TC; 84439-TC; 84443-TC; 85025-TC; 85652-TC; 85730-TC; 87070-TC; 87075-TC; 87081-TC; 88305-TC; 88312-TC; 93307-TC; 97001-TC; A4216; A6209; A6402; A6403; J0690; J2250; J2704; J3010; J3370; J3490; J7030; J7060

== ENCOUNTER 2017-03-05 11:30 | Outpatient (CLI) | payer MEDICARE, OTHER ==
[~2017-03-05 11:30] MED LIST: ACID1TAB12 PO; AMLO5TAB2 PO; ASCO500T9 PO; Amoxicillin Trihydrate PO; Aspirin PO; BIMA2.5D5 EACHEYE; BRIN8DRO EACHEYE; CALC500T63 PO; CHOL100044 PO; SULF1TAB3 PO; Valsartan PO
== END 2017-03-05 23:59 ==
LOC: WOU 11:30
PROVIDERS: ATTEND Podiatrist Foot & Ankle Surgery
DX: Z48.01 Encounter for change or removal of surgical wound dressing (principal); Z48.02 Encounter for removal of sutures; R60.0 Localized edema; I87.2 Venous insufficiency (chronic) (peripheral); L03.115 Cellulitis of right lower limb
CPT/HCPCS: A6402; G0463

== ENCOUNTER 2017-03-07 14:52 | Outpatient (CLI) | payer MEDICARE, OTHER | END 2017-03-07 23:59 | disposition home health service (06) | LOC: WOU 14:52 | PROVIDERS: ATTEND Podiatrist Foot & Ankle Surgery | DX: Z48.02 Encounter for removal of sutures (principal); I87.331 Chronic venous hypertension (idiopathic) with ulcer and inflammation of right lower extremity; L97.319 Non-pressure chronic ulcer of right ankle with unspecified severity; L03.115 Cellulitis of right lower limb | CPT/HCPCS: A6402; G0463; J3490 ==

== ENCOUNTER 2017-03-25 14:40 | Outpatient (CLI) | payer MEDICARE, OTHER | END 2017-03-25 23:59 | disposition home health service (06) | LOC: WOU 14:40 | PROVIDERS: ATTEND Podiatrist Foot & Ankle Surgery | DX: I87.2 Venous insufficiency (chronic) (peripheral) (principal); L85.3 Xerosis cutis; I49.5 Sick sinus syndrome; Z88.2 Allergy status to sulfonamides; R60.0 Localized edema; I82.811 Embolism and thrombosis of superficial veins of right lower extremity | CPT/HCPCS: G0463 ==